=== PATIENT | male | born 1945 | race Caucasian/White ===

== ENCOUNTER → 2021-02-24 | Outpatient (CLI) | payer OTHER ==
[~2021-02-24] MED LIST: ACETAMINOPHEN-1 EAC1 PO; ALBUTEROL2.5 MG/0.5 INH; AMLODIPINE BESY10 MG PO; ASPIR 8181 MG PO; CENTRUM SILVER1 EAC4 PO; FISH OIL 1,001000 M2 PO; GLUCOPHAGE XR500 MG PO; HYDROCHLOROTH12.5 M1 PO; LIPITOR80 MG PO; LOPRESSOR50 PO; LYRICA 75 MG CA75 MG PO; LYRICA150 MG PO; MOBIC7.5 MG PO; NEURONTIN 300300 M1 PO; PRILOSEC20 MG PO; SPIRIVA INH; TRILEPTAL 300300 MG PO; VITAMIN D3400 UNIT PO; ZYRTEC10 MG PO
--- NOTE | ~2021-02-24 | PFR/MVV ---
[facility] [place] [address] PULMONARY FUNCTION MVV/REPORT Name: ALVARADOKALI KENNEDY Room #: [facility] Brody#: [id number] Admission: 02/24/21 Attend Phys: Physician not on staff Discharge: Date of : 49 Report #: [id number] THIS REPORT FOR: //name// >> SPIROMETRY: (BTPS) Height: 71 in cm Weight: 250 lbs kg Exam Date: 02/24/21 PRE-RX POST-RX PRED BEST %PRED BEST %PRED %CHG FVC LITERS . 4.44 . 3.54 . 80 . 3.61 . 81 . 2 FEV1 LITERS . 2.94 . 2.60 . 88 . 2.59 . 88 . -0 FEV1/FVC % . 67 . 73 . 109 . 72 . 106 . -2 HFS95-71% L/Sec . 2.57 . 1.88 . 73 . 1.73 . 68 . -8 PEF L/SEC . 8.40 . 8.79 . 105 . 8.64 . 103 . -2 FEF50/FIF50 UNITLESS . 4.10 . 2.47 . 60 . 2.74 . 67 . 11 MVV L/Min . 127 . 62 . 49 f 1/Min . . . >> LUNG VOLUMES: (BTPS) PRE-RX POST-RX PRED AVG %PRED AVG %PRED %CHG VC Liters . 4.44 . 3.88 . 87 . . . TLC Liters . 6.70 . 5.66 . 84 . . . RV Liters . 2.66 . 1.78 . 67 . . . RV/TLC % . 42 . 31 . 75 . . . FRC PL Liters . 3.37 . 2.25 . 67 . . . FRC N2 Liters . 3.37 . . . . . ERV Liters . 1.51 . 0.51 . 33 . . . IC Liters . 3.03 . 3.41 . 113 . . . >> DIFFUSION: DLCO ml/Min/mmHg . 25.3 . 14.3 . 56 . . . DL Codey ml/Min/mmHg . 25.3 . 14.3 . 56 . . . DLCO/VA ml/Min/mmHg . 3.45 . 3.00 . 87 . . . VA Liters . . 4.76 . . . . COMMENTS: COMMENTS: >> RESISTANCE: [facility] [address] [place] [address] PULMONARY FUNCTION MVV/REPORT Name: KALI ALVARADO Room #: [facility].#: [id number] Admission: 02/24/21 Attend Phys: Physician not on staff Discharge: Date of : 49 Report #: [id number] PRE-RX PRED AVG %PRED Raw Total cmH20/L/Sec . . 3.02 . Raw Insp cmH20/L/Sec . . 1.51 . Raw Exp cmH20/L/Sec . . 2.27 . Raw cmH20/L/Sec . 1.35 . 1.96 . 145 Gaw L/Sec/cmH20 . 0.808 . 0.511 . 63 sRaw cmH20 Sec . 4.56 . 7.53 . 165 sGaw l/cmH20 Sec . 0.219 . 0.133 . 61 Vtq Liters . . 3.85 . # = OUTSIDE 95% CONFIDENCE INTERVAL CALIBRATION: PRED: 3.00 ACTUAL: EXP 3.01 INSP 3.02 [id number] [place] [id number] >> INTERPRETATION/IMPRESSION: DATE OF SERVICE: 02/24/2021 ADDENDUM There is no significant response to bronchodilator therapy. Diffusing capacity is moderately decreased. By: Solitario Alvarez MD /nt
== END ==
LOC: RAD 08:50 → PUL 09:24
DX: J44.9 Chronic obstructive pulmonary disease, unspecified (principal); I70.0 Atherosclerosis of aorta